=== PATIENT | female | born 1935 | race Caucasian/White ===

== ENCOUNTER → 2021-01-13 | Outpatient (CLI) | payer MEDICARE, OTHER | END | disposition home or self-care (01) | LOC: LAB UCHC 14:41 → LAB 14:41 → LAB SHORT 14:41 | DX: R42 Dizziness and giddiness (principal); R53.83 Other fatigue | CPT/HCPCS: 87086 ==

== ENCOUNTER → 2021-02-23 | Outpatient (CLI) | payer MEDICARE, OTHER ==
[2021-02-23 15:20] LABS: Hematocrit 31.1 % (33.0-51.0); Hemoglobin 10.2 g/dL (11.5-16.0); Mean Corpuscular HGB 31.8 pg (26.0-34.0); Mean Corpuscular HGB Conc 32.8 g/dL (31.5-36.5); Mean Corpuscular Volume 97 fL (80-100); Mean Platelet Volume 10.5 fL (9.1-12.4); Platelet Count 137 K/mm3 (150-400); RDW Standard Deviation 53.1 fL (35.1-46.3); Red Blood Cell Count 3.21 M/mm3 (3.80-5.20); White Blood Cell Count 9.54 K/mm3 (4.00-11.30)
[2021-02-23 15:34] LABS: Albumin, Blood 3.5 g/dL (3.4-5.0); Albumin/Globulin Ratio 0.9 (0.8-1.8); Bilirubin, Total 0.4 mg/dL (0.1-1.0); Bun/Creatinine Ratio 13.4 (12.0-20.0); Creatinine, Blood 0.97 mg/dL (0.40-1.00); Globulin, Blood 3.8 g/dL (2.2-4.0); Potassium, Blood 4.5 mmol/L (3.5-5.5); Total Protein, Blood 7.3 g/dL (6.4-8.2)
[2021-02-23 15:43] LABS: BASOPHILS PERCENT MAN 0 % (0-2); EOSINOPHILS PERCENT MAN 0 % (0-6); LYMPHOCYTES % ATYPICAL MANUAL 6 % (0-0); LYMPHOCYTES ABSOLUTE MAN 8.58 K/mm3 (0.84-5.20); LYMPHOCYTES PERCENT MAN 84 % (21-46); MONOCYTES ABSOLUTE MAN 0.19 K/mm3 (0.16-1.47); MONOCYTES PERCENT MAN 2 % (4-13); NEUTROPHILS ABSOLUTE MAN 0.76 K/mm3 (1.96-9.15); SEG NEUTROPHILS PERCENT MAN 8 % (41-73); TOTAL CELLS COUNTED 100
== END | disposition home or self-care (01) ==
LOC: LAB SHORT 11:45 → LAB 11:45
PROVIDERS: Internal Medicine Rheumatology
DX: M06.9 Rheumatoid arthritis, unspecified (principal)
CPT/HCPCS: 80053; 85025; 85651

== ENCOUNTER 2021-05-10 17:59 | Emergency (ER) | payer MEDICARE, OTHER ==
[~2021-05-10] VITALS: Ht 149.9 cm; Wt 56.7 kg
[2021-05-10] MEDS ORDERED: HYDSUL200 PO (18:16)
[2021-05-10] MEDS ORDERED: METTREX2.5 PO (18:16)
[2021-05-10] MEDS ORDERED: FOLI1 PO (18:17)
[2021-05-10] MEDS ORDERED: Ativan1 MG PO (18:18)
[2021-05-10] MEDS ORDERED: OMEP20ER PO (18:20)
[2021-05-10] MEDS ORDERED: MULVITA PO (18:20)
[2021-05-10] MEDS ORDERED: TRAM50 PO (19:33)
[2021-05-11] MEDS ORDERED: CALCIUM 500 +1 EAC3 PO (15:40)
== END 2021-05-11 19:35 | disposition home or self-care (01) ==
LOC: ER 17:59
DX: S00.01XA Abrasion of scalp, initial encounter (principal); S29.9XXA Unspecified injury of thorax, initial encounter; E78.5 Hyperlipidemia, unspecified; Z79.899 Other long term (current) drug therapy; W19.XXXA Unspecified fall, initial encounter
CPT/HCPCS: 71101; 96374; 99284-25; A9270; J3010

== ENCOUNTER → 2021-10-04 | Outpatient (CLI) | payer MEDICARE, OTHER ==
[~2021-10-04] MED LIST: Ativan1 MG PO; CALCIUM 500 +1 EAC3 PO; FOLI1 PO; HYDSUL200 PO; METTREX2.5 PO; MULVITA PO; OMEP20ER PO; TRAM50 PO
[2021-10-04 18:16] LABS: BASOPHILS ABSOLUTE AUTO 0.03 K/mm3 (0.00-0.23); BASOPHILS PERCENT AUTO 0 % (0-2); EOSINOPHILS ABSOLUTE AUTO 0.06 K/mm3 (0.00-0.68); EOSINOPHILS PERCENT AUTO 1 % (0-6); Hematocrit 33.2 % (33.0-51.0); Hemoglobin 11.4 g/dL (11.5-16.0); Mean Corpuscular HGB 32.9 pg (26.0-34.0); Mean Corpuscular HGB Conc 34.3 g/dL (31.5-36.5); Mean Corpuscular Volume 96 fL (80-100); Platelet Count 147 K/mm3 (150-400); RDW Coefficient Variation 15.4 % (11.7-14.2); RDW Standard Deviation 53.7 fL (35.1-46.3); Red Blood Cell Count 3.47 M/mm3 (3.80-5.20); White Blood Cell Count 7.57 K/mm3 (4.00-11.30)
[2021-10-04 18:22] LABS: IMMATURE GRAN ABSOLUTE AUTO 0.01 K/mm3 (0.00-0.10); IMMATURE GRAN PERCENT AUTO 0 % (0-1); LYMPHOCYTES ABSOLUTE AUTO 5.99 K/mm3 (0.84-5.20); LYMPHOCYTES PERCENT AUTO 79 % (21-46); MONOCYTES ABSOLUTE AUTO 0.43 K/mm3 (0.16-1.47); MONOCYTES PERCENT AUTO 6 % (4-13); NEUTROPHILS ABSOLUTE AUTO 1.05 K/mm3 (1.96-9.15); NEUTROPHILS PERCENT AUTO 14 % (41-73)
[2021-10-04 18:58] LABS: Albumin, Blood 3.7 g/dL (3.4-5.0); Albumin/Globulin Ratio 1.2 (0.8-1.8); Bilirubin, Total 0.3 mg/dL (0.1-1.0); Creatinine, Blood 1.04 mg/dL (0.40-1.00); Globulin, Blood 3.2 g/dL (2.2-4.0); Potassium, Blood 3.8 mmol/L (3.5-5.5); Total Protein, Blood 6.9 g/dL (6.4-8.2)
== END | disposition home or self-care (01) ==
LOC: LAB SHORT 11:35 → LAB 11:35
PROVIDERS: Internal Medicine Rheumatology
DX: M06.9 Rheumatoid arthritis, unspecified (principal)
CPT/HCPCS: 80053; 85025; 85651

== ENCOUNTER → 2022-02-01 | Outpatient (CLI) | payer MEDICARE, OTHER ==
[2022-02-01 18:49] LABS: BASOPHILS ABSOLUTE AUTO 0.03 K/mm3 (0.00-0.23); BASOPHILS PERCENT AUTO 1 % (0-2); EOSINOPHILS ABSOLUTE AUTO 0.07 K/mm3 (0.00-0.68); EOSINOPHILS PERCENT AUTO 1 % (0-6); Hematocrit 31.3 % (33.0-51.0); Hemoglobin 10.8 g/dL (11.5-16.0); IMMATURE GRAN ABSOLUTE AUTO 0.01 K/mm3 (0.00-0.10); IMMATURE GRAN PERCENT AUTO 0 % (0-1); LYMPHOCYTES ABSOLUTE AUTO 4.43 K/mm3 (0.84-5.20); LYMPHOCYTES PERCENT AUTO 69 % (21-46); MONOCYTES ABSOLUTE AUTO 0.42 K/mm3 (0.16-1.47); MONOCYTES PERCENT AUTO 7 % (4-13); Mean Corpuscular HGB 32.9 pg (26.0-34.0); Mean Corpuscular HGB Conc 34.5 g/dL (31.5-36.5); Mean Corpuscular Volume 95 fL (80-100); Mean Platelet Volume 10.1 fL (9.1-12.4); NEUTROPHILS ABSOLUTE AUTO 1.46 K/mm3 (1.96-9.15); NEUTROPHILS PERCENT AUTO 23 % (41-73); Platelet Count 122 K/mm3 (150-400); RDW Coefficient Variation 15.4 % (11.7-14.2); RDW Standard Deviation 53.3 fL (35.1-46.3); Red Blood Cell Count 3.28 M/mm3 (3.80-5.20); White Blood Cell Count 6.42 K/mm3 (4.00-11.30)
[2022-02-01 19:45] LABS: Albumin, Blood 3.5 g/dL (3.4-5.0); Albumin/Globulin Ratio 1.1 (0.8-1.8); Bilirubin, Total 0.4 mg/dL (0.1-1.0); Bun/Creatinine Ratio 32.3 (12.0-20.0); Calcium, Blood 8.3 mg/dL (8.5-10.1); Creatinine, Blood 0.9 mg/dL (0.40-1.00); Globulin, Blood 3.3 g/dL (2.2-4.0); Potassium, Blood 4.3 mmol/L (3.5-5.5); Total Protein, Blood 6.8 g/dL (6.4-8.2)
== END | disposition home or self-care (01) ==
LOC: LAB 15:25 → LAB SHORT 15:25
PROVIDERS: Internal Medicine Rheumatology
DX: M06.9 Rheumatoid arthritis, unspecified (principal)
CPT/HCPCS: 80053; 85025; 85651

== ENCOUNTER → 2022-05-03 | Outpatient (CLI) | payer MEDICARE, OTHER ==
[2022-05-03 15:27] LABS: Albumin, Blood 3.7 g/dL (3.4-5.0); Albumin/Globulin Ratio 1.1 (0.8-1.8); Bilirubin, Total 0.4 mg/dL (0.1-1.0); Bun/Creatinine Ratio 18.4 (12.0-20.0); Calcium, Blood 8.9 mg/dL (8.5-10.1); Creatinine, Blood 1.03 mg/dL (0.40-1.00); Globulin, Blood 3.3 g/dL (2.2-4.0); Potassium, Blood 4.2 mmol/L (3.5-5.5)
[2022-05-03 15:29] LABS: BASOPHILS ABSOLUTE AUTO 0.03 K/mm3 (0.00-0.23); BASOPHILS PERCENT AUTO 1 % (0-2); EOSINOPHILS PERCENT AUTO 0 % (0-6); Hemoglobin 10.6 g/dL (11.5-16.0); IMMATURE GRAN ABSOLUTE AUTO 0.02 K/mm3 (0.00-0.10); IMMATURE GRAN PERCENT AUTO 0 % (0-1); LYMPHOCYTES ABSOLUTE AUTO 3.07 K/mm3 (0.84-5.20); LYMPHOCYTES PERCENT AUTO 63 % (21-46); MONOCYTES ABSOLUTE AUTO 0.34 K/mm3 (0.16-1.47); MONOCYTES PERCENT AUTO 7 % (4-13); Mean Corpuscular HGB 34.5 pg (26.0-34.0); Mean Corpuscular HGB Conc 35.3 g/dL (31.5-36.5); Mean Corpuscular Volume 98 fL (80-100); Mean Platelet Volume 10.3 fL (9.1-12.4); NEUTROPHILS PERCENT AUTO 29 % (41-73); Platelet Count 146 K/mm3 (150-400); RDW Coefficient Variation 15.6 % (11.7-14.2); RDW Standard Deviation 54.7 fL (35.1-46.3); Red Blood Cell Count 3.07 M/mm3 (3.80-5.20); White Blood Cell Count 4.86 K/mm3 (4.00-11.30)
== END | disposition home or self-care (01) ==
LOC: LAB 12:54 → LAB SHORT 12:54
PROVIDERS: Internal Medicine Rheumatology
DX: M06.9 Rheumatoid arthritis, unspecified (principal); D64.9 Anemia, unspecified
CPT/HCPCS: 80053; 85025; 85651

== ENCOUNTER → 2022-06-26 | Outpatient (CLI) | payer MEDICARE, OTHER | END | disposition home or self-care (01) | LOC: LAB SHORT 11:13 → PLD 11:13 | DX: D48.5 Neoplasm of uncertain behavior of skin (principal) | CPT/HCPCS: 88305 ==

== ENCOUNTER → 2022-12-06 | Outpatient (CLI) | payer MEDICARE, OTHER ==
[2022-12-06 15:12] LABS: BASOPHILS ABSOLUTE AUTO 0.03 K/mm3 (0.00-0.23); BASOPHILS PERCENT AUTO 1 % (0-2); EOSINOPHILS PERCENT AUTO 0 % (0-6); Hematocrit 31.6 % (33.0-51.0); Hemoglobin 10.5 g/dL (11.5-16.0); IMMATURE GRAN ABSOLUTE AUTO 0.02 K/mm3 (0.00-0.10); IMMATURE GRAN PERCENT AUTO 0 % (0-1); LYMPHOCYTES ABSOLUTE AUTO 4.66 K/mm3 (0.84-5.20); LYMPHOCYTES PERCENT AUTO 75 % (21-46); MONOCYTES ABSOLUTE AUTO 0.43 K/mm3 (0.16-1.47); MONOCYTES PERCENT AUTO 7 % (4-13); Mean Corpuscular HGB 31.6 pg (26.0-34.0); Mean Corpuscular HGB Conc 33.2 g/dL (31.5-36.5); Mean Corpuscular Volume 95 fL (80-100); Mean Platelet Volume 10.3 fL (9.1-12.4); NEUTROPHILS ABSOLUTE AUTO 1.06 K/mm3 (1.96-9.15); NEUTROPHILS PERCENT AUTO 17 % (41-73); Platelet Count 106 K/mm3 (150-400); RDW Standard Deviation 55.3 fL (35.1-46.3); Red Blood Cell Count 3.32 M/mm3 (3.80-5.20)
[2022-12-06 17:42] LABS: Alanine Aminotransfer (ALT/SGP 26 U/L (12-78); Albumin, Blood 3.7 g/dL (3.4-5.0); Albumin/Globulin Ratio 1.2 (0.8-1.8); Alk Phos 74 U/L (50-136); Anion Gap 6 mmol/L (6-16); Aspartate Aminotrans (AST/SGOT 46 U/L (12-37); Bilirubin, Total 0.4 mg/dL (0.1-1.0); Blood Urea Nitrogen 20 mg/dL (8-24); Bun/Creatinine Ratio 21.4 (12.0-20.0); CHOL/HDL RATIO 2.2; CO2, Blood 27 mmol/L (21-32); Calcium, Blood 8.7 mg/dL (8.5-10.1); Chloride, Blood 105 mmol/L (98-108); Cholesterol 112 mg/dL (50-200); Creatinine, Blood 0.93 mg/dL (0.40-1.00); Globulin, Blood 3.1 g/dL (2.2-4.0); Glomerular Filtration Rate 59 (60-); Glucose, Blood 92 mg/dL (70-99); HDL Cholesterol 50 mg/dL (>39); LDL/HDL RATIO 0.7; Low Density Lipoprotein Chol 34 mg/dL (0-110); Potassium, Blood 3.6 mmol/L (3.5-5.5); Sodium, Blood 138 mmol/L (136-145); Total Protein, Blood 6.8 g/dL (6.4-8.2); Triglycerides 141 mg/dL (30-160); Very Low Density Lipoprot Chol 28 mg/dL (6-32)
== END | disposition home or self-care (01) ==
LOC: LAB 13:35 → LAB SHORT 13:35
PROVIDERS: Nurse Practitioner Family
DX: I10 Essential (primary) hypertension (principal); L65.9 Nonscarring hair loss, unspecified; E78.5 Hyperlipidemia, unspecified
CPT/HCPCS: 80053; 80061; 84443; 85025

== ENCOUNTER 2023-01-06 01:21 | Emergency (ER) | payer MEDICARE, OTHER ==
[~2023-01-06] VITALS: Ht 147.3 cm; Wt 54.4 kg
[2023-01-06 02:00] VITALS: BP 162/68
== END 2023-01-06 03:52 | disposition home or self-care (01) ==
LOC: ER 01:21
DX: S40.011A Contusion of right shoulder, initial encounter (principal); W18.12XA Fall from or off toilet with subsequent striking against object, initial encounter
CPT/HCPCS: 73030; A9270

== ENCOUNTER → 2023-03-21 | Outpatient (CLI) | payer MEDICARE, OTHER ==
[2023-03-21 14:32] LABS: BASOPHILS ABSOLUTE AUTO 0.02 K/mm3 (0.00-0.23); BASOPHILS PERCENT AUTO 0 % (0-2); EOSINOPHILS PERCENT AUTO 0 % (0-6); Hematocrit 30.4 % (33.0-51.0); Hemoglobin 10.1 g/dL (11.5-16.0); Mean Corpuscular HGB 31.7 pg (26.0-34.0); Mean Corpuscular HGB Conc 33.2 g/dL (31.5-36.5); Mean Corpuscular Volume 95 fL (80-100); Mean Platelet Volume 10.6 fL (9.1-12.4); Platelet Count 105 K/mm3 (150-400); RDW Coefficient Variation 16.5 % (11.7-14.2); RDW Standard Deviation 57.4 fL (35.1-46.3); Red Blood Cell Count 3.19 M/mm3 (3.80-5.20); White Blood Cell Count 6.79 K/mm3 (4.00-11.30)
[2023-03-21 14:37] LABS: IMMATURE GRAN ABSOLUTE AUTO 0.01 K/mm3 (0.00-0.10); IMMATURE GRAN PERCENT AUTO 0 % (0-1); LYMPHOCYTES ABSOLUTE AUTO 5.76 K/mm3 (0.84-5.20); LYMPHOCYTES PERCENT AUTO 85 % (21-46); MONOCYTES ABSOLUTE AUTO 0.47 K/mm3 (0.16-1.47); MONOCYTES PERCENT AUTO 7 % (4-13); NEUTROPHILS ABSOLUTE AUTO 0.53 K/mm3 (1.96-9.15); NEUTROPHILS PERCENT AUTO 8 % (41-73)
[2023-03-21 15:04] LABS: Albumin, Blood 3.6 g/dL (3.4-5.0); Albumin/Globulin Ratio 0.9 (0.8-1.8); BASOPHILS PERCENT MAN 0 % (0-2); Bilirubin, Total 0.4 mg/dL (0.1-1.0); Bun/Creatinine Ratio 19.4 (12.0-20.0); Creatinine, Blood 0.93 mg/dL (0.40-1.00); EOSINOPHILS PERCENT MAN 0 % (0-6); Globulin, Blood 3.8 g/dL (2.2-4.0); LYMPHOCYTES % ATYPICAL MANUAL 1 % (0-0); LYMPHOCYTES ABSOLUTE MAN 5.83 K/mm3 (0.84-5.20); LYMPHOCYTES PERCENT MAN 85 % (21-46); MONOCYTES PERCENT MAN 6 % (4-13); NEUTROPHILS ABSOLUTE MAN 0.54 K/mm3 (1.96-9.15); Potassium, Blood 3.9 mmol/L (3.5-5.5); SEG NEUTROPHILS PERCENT MAN 8 % (41-73); TOTAL CELLS COUNTED 100; Total Protein, Blood 7.4 g/dL (6.4-8.2)
== END | disposition home or self-care (01) ==
LOC: LAB 13:21 → LAB SHORT 13:21
PROVIDERS: Internal Medicine Rheumatology
DX: M06.9 Rheumatoid arthritis, unspecified (principal); D64.9 Anemia, unspecified
CPT/HCPCS: 80053; 85025; 85651